=== PATIENT | female | born 1980 | race African-American/Black ===

== ENCOUNTER 2017-04-26 20:43 | Emergency (ER) | payer MEDICAID ==
[~2017-04-26] VITALS: Ht 170.2 cm; Wt 63.5 kg
[2017-04-26] MEDS ORDERED: ALBU8HFA IH (21:17)
[2017-04-26] MEDS ORDERED: FentaNYL CITRATE-PF 100 MCG/2 ML VIAL IM ONE (21:45)
[2017-04-26 22:35] VITALS: BP 127/73
== END 2017-04-26 22:47 | disposition home or self-care (01) ==
LOC: EMS 20:46
DX: R10.84 Generalized abdominal pain (principal); J45.909 Unspecified asthma, uncomplicated; Z88.6 Allergy status to analgesic agent; Z88.8 Allergy status to other drugs, medicaments and biological substances
CPT/HCPCS: 96372; 99283; J3010